=== PATIENT | male | born 1965 | race African-American/Black ===

== ENCOUNTER → 2017-03-24 | Outpatient (REF) ==
--- NOTE | 2017-03-24 14:05 | REP ---
PARTIAL LUMBAR SPINE, THREE VIEWS: HISTORY: Degenerative disc disease. There are four lumbar type vertebral bodies. There is sacralization of the L5 vertebral body. There is no acute fracture or subluxation. The L2-3 through L4-5 intervertebral discs are decreased in height consistent with disc degeneration. Osteophytes are present on L3 and 4. IMPRESSION: Degenerative change as described above. Signed by Tommy Mo MD 03/24/2017 02:06 P
== END ==
LOC: M SMT 13:03
PROVIDERS: ATTEND Internal Medicine
DX: M51.36 Other intervertebral disc degeneration, lumbar region (principal)

== ENCOUNTER 2018-03-25 03:37 | Emergency (ER) | payer OTHER ==
[2018-03-25] MEDS: AUGMENTIN 875 MG TAB PO (05:19)
[2018-03-25] MEDS: NORCO, ANEXSIA 5/325MG TABLET (HYDROcodone/ACETAMINOPHEN) PO (05:29)
[2018-03-25] MEDS: NORCO 5/325MG TABLET (BULK FOR ED) PO (05:29)
== END 2018-03-25 05:32 | disposition home or self-care (01) ==
LOC: M ED 03:37
DX: S62.342A Nondisplaced fracture of base of third metacarpal bone, right hand, initial encounter for closed fracture (principal); S62.344A Nondisplaced fracture of base of fourth metacarpal bone, right hand, initial encounter for closed fracture; S62.346A Nondisplaced fracture of base of fifth metacarpal bone, right hand, initial encounter for closed fracture; L98.499 Non-pressure chronic ulcer of skin of other sites with unspecified severity; W01.10XA Fall on same level from slipping, tripping and stumbling with subsequent striking against unspecified object, initial encounter; Y92.410 Unspecified street and highway as the place of occurrence of the external cause; Y93.9 Activity, unspecified; Y99.9 Unspecified external cause status; K21.9 Gastro-esophageal reflux disease without esophagitis; Z87.81 Personal history of (healed) traumatic fracture; Z79.899 Other long term (current) drug therapy
CPT/HCPCS: 73110

== ENCOUNTER 2018-08-24 13:00 | Outpatient (RCR) | payer OTHER ==
[~2018-08-24 13:00] MED LIST: AUGM500T34 PO; BACL10TA2 PO; BENT10CA PO; CELE1CAP4 PO; CELE40TA PO; HYDR50TA70 PO; PROT1TAB2 PO
== END 2018-09-06 ==
LOC: M OT 13:00
PROVIDERS: ATTEND Orthopaedic Surgery
DX: Z47.89 Encounter for other orthopedic aftercare (principal); Z98.890 Other specified postprocedural states; Z98.1 Arthrodesis status

== ENCOUNTER → 2018-10-12 | Outpatient (REF) | payer OTHER ==
[2018-10-12 15:12] LABS: HEMATOCRIT 41.5 % (42.0-52.0); HEMOGLOBIN 13.4 g/dl (13.5-17.5); MEAN CORPUSCULAR HEMOGLOBIN 27.1 pg (27.0-33.0); MEAN CORPUSCULAR HGB CONC 32.3 g/dl (32.0-36.5); PLATELET COUNT, AUTOMATED 189 10^3/uL (150-450); RED BLOOD COUNT 4.94 10^6/uL (4.30-6.10); WHITE BLOOD COUNT 6.7 10^3/uL (4.0-10.0)
[2018-10-12 15:15] LABS: HEMOGLOBIN A1c 6.5 %
[2018-10-12 15:32] LABS: ALT/SGPT 37 U/L (12-78); BILIRUBIN,TOTAL 0.3 MG/DL (0.2-1.0); BLOOD UREA NITROGEN 13 MG/DL (7-18); CALCIUM LEVEL 8.6 MG/DL (8.5-10.1); CARBON DIOXIDE LEVEL 27 MEQ/L (21-32); CHLORIDE LEVEL 106 MEQ/L (98-107); CHOLESTEROL LEVEL 177 MG/DL (<200); CREATININE FOR GFR 0.83 MG/DL (0.70-1.30); GLOMERULAR FILTRATION RATE > 60.0 (>56); GLUCOSE, FASTING 86 MG/DL (70-100); HDL CHOLESTEROL 38 MG/DL (>40); POTASSIUM SERUM 4.6 MEQ/L (3.5-5.1); SODIUM LEVEL 139 MEQ/L (136-145); TRIGLYCERIDES LEVEL 91 MG/DL (<150)
[2018-10-12 15:33] LABS: ALBUMIN 3.8 GM/DL (3.2-5.2); CHOLESTEROL RISK RATIO 4.657 (<5); LDL CHOLESTEROL 121 MG/DL (<100); NON-HDL-C 139 MG/DL; TOTAL PROTEIN 7.3 GM/DL (6.4-8.2)
== END ==
LOC: M LABDRAW1 10:20 → M SFHCPLAZ 10:20
PROVIDERS: ATTEND Nurse Practitioner Adult Health
DX: Z00.00 Encounter for general adult medical examination without abnormal findings (principal); Z13.220 Encounter for screening for lipoid disorders; K22.70 Barrett's esophagus without dysplasia; Z83.3 Family history of diabetes mellitus

== ENCOUNTER → 2018-12-13 | Outpatient (REF) | payer OTHER ==
[~2018-12-13] MED LIST changes: +DICY20TA11 PO; +IBUP-1022 PO
[2018-12-13 18:06] LABS: HEMOGLOBIN A1c 5.7 %
== END ==
LOC: M SFHCPLAZ 14:21
PROVIDERS: ATTEND Nurse Practitioner Adult Health
DX: R73.09 Other abnormal glucose (principal)

== ENCOUNTER 2018-12-14 12:58 | Day surgery (SDC) | payer OTHER ==
[~2018-12-14] VITALS: Ht 185.4 cm; Wt 123.8 kg
[~2018-12-14 12:58] MED LIST changes: +LIDOCAINE 2% INJ 100 MG/5 ML SDV (FOR ANES.) As Ordered ONE; +NS 1,000 ML IV ONE; +PROPOFOL 200 MG/20 ML VIAL As Ordered ONE
[2018-12-14] MEDS ORDERED: fentaNYL 100 MCG/2 ML INJECTION (J3010) As Ordered ONE (13:43)
--- NOTE | 2018-12-14 14:17 | ROOR ---
Patient Name: Carlos Bhagat Procedure Date: 12/14/2018 1:43 PM Date of : 1965 Age: 53 Room: [facility] Gender: Male Note Status: Finalized Procedure: Upper GI endoscopy Indications: Screening for Rosales's esophagus, Epigastric abdominal pain Providers: Jose L Blake MD Referring MD: Jessenia RODRIGUEZ NP Requesting Provider: Medicines: Monitored Anesthesia Care Complications: No immediate complications. Procedure: Pre-Anesthesia Assessment: - Prior to the procedure, a History and Physical was performed, and patient medications and allergies were reviewed. The patient is competent. The risks and benefits of the procedure and the sedation options and risks were discussed with the patient. All questions were answered and informed consent was obtained. Patient identification and proposed procedure were verified by the physician, the nurse and the anesthesiologist in the procedure room. Mental Status Examination: alert and oriented. Airway Examination: normal oropharyngeal airway and neck mobility. Respiratory Examination: clear to auscultation. CV Examination: normal. Prophylactic Antibiotics: The patient does not require prophylactic antibiotics. Prior Anticoagulants: The patient has taken no previous anticoagulant or antiplatelet agents. ASA Grade Assessment: II - A patient with mild systemic disease. After reviewing the risks and benefits, the patient was deemed in satisfactory condition to undergo the procedure. The anesthesia plan was to use monitored anesthesia care (MAC). Immediately prior to administration of medications, the patient was re-assessed for adequacy to receive sedatives. The heart rate, respiratory rate, oxygen saturations, blood pressure, adequacy of pulmonary ventilation, and response to care were monitored throughout the procedure. The physical status of the patient was re-assessed after the procedure. The Endoscope was introduced through the mouth, and advanced to the second part of duodenum. The upper GI endoscopy was accomplished without difficulty. The patient tolerated the procedure well. Findings: Two tongues of salmon-colored mucosa were present from 40 to 42 cm. No other visible abnormalities were present. The maximum longitudinal extent of these esophageal mucosal changes was 2 cm in length. Mucosa was biopsied with a cold forceps for histology. One specimen bottle was sent to pathology. Verification of patient identification for the specimen was done by the physician and nurse using the patient's name, date and medical record number. Estimated blood loss was minimal. A medium amount of food (residue) was found in the gastric fundus and in the gastric body. Scattered mild inflammation characterized by erosions and granularity was found in the gastric antrum. Biopsies were taken with a cold forceps for Helicobacter pylori testing. No gross lesions were noted in the duodenal bulb and in the second portion of the duodenum. Biopsies for histology were taken with a cold forceps for evaluation of celiac disease. Impression: - [place]-colored mucosa suspicious for short-segment Rosales's esophagus. Biopsied. - A medium amount of food (residue) in the stomach. - Gastritis. Biopsied. - No gross lesions in the duodenal bulb and in the second portion of the duodenum. Biopsied. Recommendation: - Patient has a contact number available for emergencies. The signs and symptoms of potential delayed complications were discussed with the patient. Return to normal activities tomorrow. Written discharge instructions were provided to the patient. - Resume previous diet. - Continue present medications. - Follow an antireflux regimen. - Await pathology results. - Repeat upper endoscopy in 1 year to check healing and to evaluate the response to therapy. - Based on the biopsy results you will receive a phone call from GI clinic in 2-3 weeks to review the pathology results AND/OR your results will be faxed to your Primary care physician. - Return to primary care physician. Jose L Blake MD Jose L Blake MD 12/14/2018 2:17:04 PM Electronically signed by Jose L Blake MD Number of Addenda: 0 Note Initiated On: 12/14/2018 1:43 PM Estimated Blood Loss: Estimated blood loss was minimal.
[2018-12-14 14:35] VITALS: BP 142/87
== END 2018-12-14 14:38 | disposition home or self-care (01) ==
LOC: M OPP 12:58
PROVIDERS: ATTEND Internal Medicine Gastroenterology
DX: R10.13 Epigastric pain (principal); K22.8 Other specified diseases of esophagus; K29.70 Gastritis, unspecified, without bleeding; Z13.810 Encounter for screening for upper gastrointestinal disorder
CPT/HCPCS: 43239; 88305; J3010